=== PATIENT | male | born 1950 | race Caucasian/White ===

== ENCOUNTER 2017-10-30 15:49 | Outpatient (CLI) | payer MEDICARE, BC | END 2017-10-30 15:50 | disposition home or self-care (01) | LOC: LABBT 15:49 | PROVIDERS: ATTEND Neurological Surgery | DX: Z01.818 Encounter for other preprocedural examination (principal); M54.16 Radiculopathy, lumbar region | CPT/HCPCS: 93005; 93010 ==

== ENCOUNTER 2017-11-06 06:37 | Day surgery (SDC) | payer MEDICARE, BC ==
[2017-10-30 16:06] VITALS: BMI 32.1
--- NOTE | 2017-11-05 14:22 | HP ---
HISTORY OF PRESENT ILLNESS: Mr. Baker is a pleasant gentleman, referred to us by Dr. Bolden for evalua tion of bilateral radicular pains to the lower extremities, most significantly to the right. This be rut in the end of July of this year after having lifted a broken garage door. He felt a pop and then 2 to 3 days later pain onset. At first, it was rather severe, radiating in an L3 fashion to the righ t lower extremity and since that time has started to taper off. He still has significant pain and al so some peculiar into the bilateral lower extremities. Lumbar spine MRI reveals diffuse degene rative disease, but specifically has a large foraminal disk extrusion to the right in the L3 neural f oramen that would correspond well. This was performed on the [facility]. On exam, he has obv ious and significant quadriceps muscle atrophy to the right lower extremity as compared to the left w ith significant degree of loss of caliber in his thigh musculature. He is also somewhat weak and thi s may grading at 5-/5 on knee extension as compared to the left lower extremity. His gait is also so mewhat altered. PAST MEDICAL HISTORY: Significant for hypercholesterolemia, diabetes. PAST SURGICAL HISTORY: Ganglion cystectomy of the right wrist. CURRENT MEDICATIONS: Rosuvastatin, losartan, metformin, gabapentin, and multivitamin. ALLERGIES: No known drug allergies. ASSESSMENT: Lumbar radiculopathy. PLAN: Dr. Ferraro met with the patient, reviewed imaging and ultimately advocated for a right L3 facet ectomy and diskectomy. He explained to the patient the risks, benefits, and alternatives to the proc edure. The patient expressed understanding and would like to move forward with surgery as discussed. I do believe the patient is mentally competent and capable of making medical decisions for himself. We will move forward with surgery as planned. Anant Taylor PA-C, dictating for Dr. Ferraro.
[2017-11-06] MEDS ORDERED: CEFAZOLIN/Water 2 GM/20 ML SYRINGE ONE ×2 (07:47→13:04)
[2017-11-06] MEDS ORDERED: Bupivacaine HCl 0.5%/Epinephrine 1:200,000/PF 30 ml Vial ONE (09:17)
[2017-11-06] MEDS ORDERED: Fentanyl 100 MCG/2 ML VIAL ONE (09:19)
[2017-11-06] MEDS ORDERED: Promethazine HCl 25 MG/ML VIAL ONE (13:35)
--- NOTE | 2017-11-10 14:31 | OP ---
DATE OF PROCEDURE: 11/06/2017 SURGEON: Nomi Ferraro M.D. SOFTWARE TEST ENGINEER: Anant Taylor PA-C. INDICATION: Weakness, pain and prevent neurologic decline. 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 PROCEDURES: Right L3 hemilaminectomy, medial facetectomy and diskectomy. ANESTHESIA: General. TECHNIQUE: The patient was brought into the operating room and placed under general anesthesia. He was flipped from a supine to prone position on the operating room table. A linear incision was plann ed over the L3 segment. After prepping and draping and after an appropriate operative pause, the inc ision was created. The soft tissues were swept right of midline. A self-retaining retractor was taylor lito. A C-arm image was obtained to confirm the appropriate location. High-speed cutting drill bit a s well as 2, 3 and 4-mm Kerrisons were then used to perform a laminectomy along the inferior aspect o f L3 in the right side. The laminectomy was extended laterally to encompass the medial aspect of the facet joint. The L3 pedicle and L4 pedicle on the right were identified. The exiting L3 nerve root was also identified. There appeared to be adhesions in what was consistent with scar tissue adjacen t to the L3 nerve root. This was despite no known prior operative procedure. These adhesions and sc ar tissue elements were carefully removed until the exiting L3 nerve root was well decompressed. The L3 disk was explored on the right side, both within the lateral recess as well as in the foramen. T here was no substantial disk material present. The wound was irrigated. Hemostasis was maintained t hroughout. The wound was then closed in anatomic layers and a pressure dressing was applied. There were no known procedural complications.
== END 2017-11-06 14:00 | disposition home or self-care (01) ==
LOC: SDC 06:37
PROVIDERS: ATTEND Neurological Surgery
PROC: 0SB20ZZ Excision of Lumbar Vertebral Disc, Open Approach (ICD-10-PCS; principal; 2017-11-06)
PROC: 01NB0ZZ Release Lumbar Nerve, Open Approach (ICD-10-PCS; 2017-11-06)
DX: M48.061 Spinal stenosis, lumbar region without neurogenic claudication (principal); M54.16 Radiculopathy, lumbar region; E11.9 Type 2 diabetes mellitus without complications; M62.551 Muscle wasting and atrophy, not elsewhere classified, right thigh; E78.00 Pure hypercholesterolemia, unspecified; Z79.84 Long term (current) use of oral hypoglycemic drugs; Z79.899 Other long term (current) drug therapy
CPT/HCPCS: 76001; 96374; J0670; J2550; J3010